=== PATIENT | female | born 1980 | race Caucasian/White ===

== ENCOUNTER → 2021-04-08 | Outpatient (CLI) | payer OTHER ==
[~2021-04-08] MED LIST: DHA100 MG PO; PRENATAL PO
== END ==
LOC: M.RAD 14:43
PROVIDERS: ATTEND Family Medicine
DX: M50.321 Other cervical disc degeneration at C4-C5 level (principal); R20.2 Paresthesia of skin; M48.02 Spinal stenosis, cervical region

== ENCOUNTER → 2021-04-11 | Outpatient (CLI) | payer OTHER | LOC: M.MRI 07:03 | PROVIDERS: ATTEND Family Medicine | DX: M47.22 Other spondylosis with radiculopathy, cervical region (principal); M48.02 Spinal stenosis, cervical region ==

== ENCOUNTER → 2021-06-04 | Outpatient (CLI) | payer OTHER | LOC: M.RAD 08:19 | PROVIDERS: ATTEND Family Medicine | DX: M54.6 Pain in thoracic spine (principal) ==